=== PATIENT | male | born 2000 | race Caucasian/White ===

== ENCOUNTER 2025-01-14 16:04 | Emergency (ER) | payer OTHER, SELFPAY ==
[2025-01-14 16:13] VITALS: BP 140/84
[2025-01-14 16:31] LABS: % Basophils 0.3 % (0-2); % Eosinophils 1.9 % (0-6); % Immature Granulocytes 0.2 % (0-0.5); % Lymphocytes 19.6 % (20.5-51.1); % Monocytes 7.4 % (1.7-9.3); % Neutrophils 70.6 % (42.2-75.2); Absolute Eosinophils 0.2 10^3/uL (0-0.7); Absolute Lymphocytes 2.4 10^3/uL (1.2-3.4); Absolute Monocytes 0.9 10^3/uL (0.1-0.6); Absolute Neutrophils 8.7 10^3/uL (1.4-6.5); Hematocrit 45.5 % (39.0-52.0); Mean Corp Hgb Conc. 35.2 g/dL (33.0-37.0); Mean Corpuscular Hgb 29.3 pg (27.0-31.0); Mean Corpuscular Volume 83.2 fL (80.0-94.0); Mean Platelet Volume 9.2 fL (7.4-10.4); Nucleated Red Blood Cells % 0 % (-); Platelet Count 274 10^3/uL (130-400); Red Blood Cell Count 5.47 10^6/uL (4.70-6.10); Red Cell Dist. Width 11.9 % (11.5-14.5); White Blood Cell Count 12.4 10^3/uL (4.8-10.8)
[2025-01-14 16:47] LABS: ALT (SGPT) 110 U/L (0-50); AST (SGOT) 63 U/L (17-59); Albumin 5.3 g/dl (3.5-5.0); Alkaline Phosphatase 78 U/L (38-126); Blood Urea Nitrogen 17 mg/dl (9-20); Calcium 10.3 mg/dl (8.4-10.2); Carbon Dioxide 26 mmol/L (22-30); Chloride 104 mmol/L (98-107); Glucose 105 mg/dl (70-99); Sodium 142 mmol/L (135-145); Total Bilirubin 0.9 mg/dl (0.2-1.3); Total Protein 7.8 g/dl (6.3-8.2); eGFR > 60.00
[2025-01-14 17:34] VITALS: BMI 30.7
--- NOTE | 2025-01-14 18:08 | ED.GENMED ---
History of Present Illness
General
Chief Complaint: Eye Problems
Source: patient
Exam Limitations: none
Time Seen by Provider: 01/14/25 17:54
History of Present Illness
History of Present Illness:
24yoM with no significant past medical history presenting with his father for evaluation of a rash. Patient woke up yesterday morning with a facial rash which was itchy. The rash was significantly worse when he woke up today and his left eye was
swollen shut. He believes he was scratching his face throughout the night. He also has this rash present in his groin and right wrist. His facial swelling does seem improved since this morning and he is now able to open his eye. He denies any
eye pain or visual disturbance. No fevers, chills, nausea, vomiting, diarrhea. He was in a park the day before his symptoms started. He denies any new lotions or detergents. 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
had an issue since the age of 6.
Past History
Past History
ED Past Medical History: None
Social History
Tobacco: Non-smoker
Alcohol: Occasional
Personal: Single
Living: with family
Phy Exam
General Physical Exam
General Presentation: well appearing and no apparent distress
General age: appears stated age
General Skin: warm and dry
General Habitus: normal
General Mental: alert
ENT Exam
ENT Exam: normocephalic and other (Reactive L periorbital swelling noted. Able to open eye. L conjunctiva appears normal. PERRL. EOMs intact without pain. No proptosis. )
Pulmonary Exam
Pulmonary Exam: no respiratory distress
Neurological Exam
Neurological Exam: alert
Obey Coma Scale
Eye Opening: Spontaneous
Verbal Response: Oriented
Motor Response: Obeys Commands
GCS Total Score: 15
Skin Exam
Skin Exam: warm/dry and other (There is a diffuse erythematous raised facial rash with vesicles and oozing consistent with contact dermatitis. )
Psychiatric Exam
Psychiatric Exam: normal mood/affect
Course
Orders/Labs/Results
Orders:
Orders
01/14/25 16:21
Complete Blood Count/With Diff Urgent
Comprehensive Metabolic Panel Urgent
01/14/25 18:07
Dexamethasone Sod Phosphate [Decadron] 10 mg IV NOW STA
Diphenhydramine [Benadryl] 25 mg IV NOW STA
Abnormal Lab Results
01/14/25
16:21
WBC 12.4 H 10^3/uL
(4.8-10.8)
Absolute Neuts (auto) 8.7 H 10^3/uL
(1.4-6.5)
Absolute Monos (auto) 0.9 H 10^3/uL
(0.1-0.6)
Lymphocytes % 19.6 L %
(20.5-51.1)
Glucose 105 H mg/dl
(70-99)
Calcium 10.3 H mg/dl
(8.4-10.2)
AST 63 H U/L
(17-59)
ALT 110 H U/L
(0-50)
Albumin 5.3 H g/dl
(3.5-5.0)
01/14/25 16:21
01/14/25 16:21
Vital Signs
Initial and Last Documented VS:
Initial Vital Signs
Temp Pulse Resp BP Pulse Ox
98.3 F 91 18 140/84 100
01/14/25 16:13 01/14/25 16:13 01/14/25 16:13 01/14/25 16:13 01/14/25 16:13
Last Documented Vital Signs
Temp Pulse Resp BP Pulse Ox
98.1 F 88 18 114/69 98
01/14/25 19:37 01/14/25 19:37 01/14/25 19:37 01/14/25 19:37 01/14/25 19:37
MDM/Problems Addressed
Differential Diagnosis Includes:
24yoM here with a facial rash and L periorbital swelling x 1 day. Eye swollen shut this morning but now improved. C/o itchiness. Also has a rash to the groin which appears similar. VSS. He is well appearing in no distress. There is an erythematous
raised facial rash with vesicles and weeping. Rash crosses midline. L conjunctiva appears normal. There is no proptosis or pain with EOMs. Differential diagnosis includes but is not limited to: Contact dermatitis, doubt shingles given bilateral
distribution, no clinical evidence of orbital cellulitis
Labs sent in triage. Mild leukocytosis noted with a white count of 12.4 which is nonspecific. Clinical presentation consistent with contact dermatitis with reactive periorbital swelling. Dose of IV Decadron and Benadryl given in ED. He was
started on a prednisone taper. Advised close follow-up with PCP. Strict ED return precautions discussed including eye pain, visual disturbance, fevers. Patient in agreement with plan and was discharged in stable condition.
*Critical Care Note
Total Time (30-74mins, 75-104mins- exclusive of procedures): Not Applicable
ED Attending Note
-
Portions of this chart may have been created with voice recognition software.� Occasional wrong word or��sound alike� substitutions may have occurred due to the inherent limitations of voice recognition software.
Discharge Plan
Departure
Patient Disposition: Home (Routine Discharge)
Date of Disposition: 01/14/25
Time of Disposition: 19:17
Patient with high blood pressure during this ER visit?: Yes
Discharge Problem:
Contact dermatitis, Facial swelling
Instructions: Contact dermatitis
Prescriptions:
New
prednisone 10 mg tablet
10 mg PO DIRECTED Qty: 42 0RF
Rx Instructions:
Take 60mg PO daily x 2 days, followed by 50mg x 2 days, 40mg x 2 days, 30mg x 2 days,20mg x 2 days,10mg x 2 days.
Referrals:
Andre Juarez MD [Family Provider] -
Activity Restrictions/Additional Instructions:
Take prednisone taper as prescribed. Take Benadryl 25 mg every 6 hours as needed for itching.
Please follow-up with your family doctor next week. Return to the ER with any new or worsening symptoms including eye pain, visual changes, and fevers.
Interventions
Interventions:
*Risk Screen - Suicide Last Done: 01/14/25 16:16
*General Assessment Last Done: 01/14/25 16:16
*Neglect/Abuse Screening Last Done: 01/14/25 16:16
*ED- Fall Risk Assessment Last Done: 01/14/25 17:34
*ED COVID-19 Vaccine History Last Done: 01/14/25 16:16
*Nursing Disposition Last Done: 01/14/25 19:37
Discharge Date and Time
Discharge Date/Time: 01/14/25 19:38
Print Language: POLISH
[2025-01-14] MEDS: DECADRON 10 MG IV (18:17)
[2025-01-14] MEDS: BENADRYL 25 MG IV (18:17)
[2025-01-14 18:51] VITALS: BP 121/75
[2025-01-14 19:00] VITALS: BP 111/67
[2025-01-14 19:33] VITALS: BP 114/69
[2025-01-14 19:37] VITALS: BP 114/69
== END 2025-01-14 19:38 | disposition home or self-care (01) ==
LOC: EMR 16:04
PROVIDERS: Emergency Medicine; EMERGENCY PHYSICIAN Emergency Medicine; FAMILY PHYSICIAN Family Medicine
DX: L25.9 Unspecified contact dermatitis, unspecified cause (principal); R22.0 Localized swelling, mass and lump, head
CPT/HCPCS: 99283; 96374; 96375; 80053; 85025